=== PATIENT | female | born 1935 | race Caucasian/White ===

== ENCOUNTER 2017-02-05 18:16 | Emergency (ER) | payer BC, MEDICARE ==
[2017-02-05 19:16] VITALS: BP 144/51
--- NOTE | 2017-02-05 20:12 | EDM.PDOC ---
ED HPI GENERAL MEDICAL PROBLEM - General Chief Complaint: Lower Extremity Injury/Pain Stated Complaint: FOOT/ANKLE PAIN, [id number] Time Seen by Provider: 02/05/17 20:07 Source of Information: Reports: Patient History Limitations: Reports: No Limitations - History of Present Illness INITIAL COMMENTS - FREE TEXT/NARRATIVE: states large log fell onto right foot [employer] Left Ankle Pain Score (Numeric/FACES): 7 - Related Data Allergies Allergy/AdvReac Type Severity Reaction Status Date / Time No Known Allergies Allergy Verified 02/05/17 19:09 Home Meds: Home Meds Aspirin [[place] Aspirin] 81 mg PO DAILY 03/07/14 [History] Calcium Carbonate/Vitamin D3 [Calcium 600 + Vit D Tablet] 1 tab PO DAILY [History] Green Tea [place] Extract [Green Tea] 250 mg PO DAILY 03/07/14 [History] Metoprolol Succinate 50 mg PO DAILY 03/07/14 [History] Multivitamin/Iron/Folic Acid [Multi-Day Plus Iron Tablet] 1 tab PO DAILY [History] [place]-3/DHA/Epa/Fish Oil [[place]-3 Fish Oil 1,200 MG Sfgl] 1 tab PO DAILY [History] Selenium 200 mcg PO DAILY 03/07/14 [History] Simvastatin 20 tab PO BEDTIME 03/07/14 [History] Ibuprofen [Motrin] 1 tab PO TIDAC PRN #0 08/29/15 [Rx] Past Medical History HEENT History: Reports: Impaired Vision Other HEENT History: wears glasses Cardiovascular History: Reports: High Cholesterol, Hypertension Gastrointestinal History: Reports: None 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 ED EXAM, GENERAL - Physical Exam Exam: See Below Exam Limited By: No Limitations General Appearance: Alert, WD/WN, No Apparent Distress Ears: Hearing Grossly Normal Throat/Mouth: Normal Voice, No Airway Compromise Head: Atraumatic Neck: Non-Tender, Full Range of Motion Respiratory/Chest: No Respiratory Distress Cardiovascular: Regular Rate, Rhythm GI/Abdominal: Soft, Non-Tender Extremities: Limited Range of Motion, Pallor, Other (right foot contused dorsally, no gross deformity, mild discolouration, NV wnl, gait limited to pain) Neurological: Alert, Normal Cognition, No Motor/Sensory Deficits Psychiatric: Normal Affect, Normal Mood Skin Exam: Warm, Dry Lymphatic: No Adenopathy Course - Vital Signs Last Recorded V/S: Last Vital Signs Temp 36.3 C 02/05/17 19:14 Pulse 68 02/05/17 19:14 Resp 16 02/05/17 19:14 BP 144/51 H 02/05/17 19:14 Pulse Ox 97 02/05/17 19:14 - Re-Assessments/Exams Free Text/Narrative Re-Assessment/Exam: 02/05/17 20:09 results discussed with pt. states the pain is tolerable and doesn't want anything now. Departure - Departure Time of Disposition: 20:10 Disposition: Home, Self-Care 01 Condition: Good Clinical Impression: Fracture of foot - Discharge Information Instructions: How to Use a Cast Shoe Forms: ED Department Discharge Additional Instructions: 1) elevate leg as much as possible 2) wear cast boot and use crutches 3) see family doctor tomorrow for ORTHOPEDIC REFERRAL for foot fracture 4) take tylenol or motrin for pain
== END 2017-02-05 20:39 | disposition home or self-care (01) ==
LOC: DL.ED 18:16
DX: S92.901A Unspecified fracture of right foot, initial encounter for closed fracture (principal); H54.7 Unspecified visual loss; E78.00 Pure hypercholesterolemia, unspecified; I10 Essential (primary) hypertension; M19.90 Unspecified osteoarthritis, unspecified site; Z79.899 Other long term (current) drug therapy; Z79.82 Long term (current) use of aspirin; Z90.49 Acquired absence of other specified parts of digestive tract; W20.8XXA Other cause of strike by thrown, projected or falling object, initial encounter
CPT/HCPCS: 73610-RT; 73620-RT; 99283

== ENCOUNTER 2017-12-27 06:16 | Day surgery (SDC) | payer BC, MEDICARE ==
[~2017-12-27 06:16] MED LIST: Proparacaine 0.5% Ophth Soln 15 ML Bottle ONE
[2017-12-27] MEDS ORDERED: Midazolam 1 MG/ML 2 ML SDV IV ONE (06:17)
[2017-12-27] MEDS ORDERED: Sodium Chloride 0.9% 10 ML Syringe IV ONE (06:17)
[2017-12-27] MEDS ORDERED: Dexamethasone 4 MG/ML SDV IV ONE (06:17)
[2017-12-27] MEDS ORDERED: Sodium Chloride 0.9% 10 ML Syringe FLUSH PRN (06:30)
[2017-12-27] MEDS ORDERED: Moxifloxacin 0.5% Ophth Soln 3 ML Bottle EYELF ONE (06:30)
[2017-12-27] MEDS ORDERED: Povidone-Iodine 5% Sterile Ophth Soln 30 ML Bottle EYELF ONE ×2 (06:30→07:52)
[2017-12-27] MEDS ORDERED: Ondansetron 4 MG/2 ML SDV IVPUSH PRN (06:30)
[2017-12-27] MEDS ORDERED: Timolol Maleate 0.5% Ophth Soln 5 ML Bottle EYELF ONE (06:30)
[2017-12-27] MEDS ORDERED: Phenylephrine 10% Ophth Soln 5 ML Bot EYELF PRN (06:30)
[2017-12-27] MEDS ORDERED: Phenylephrine 10% Ophth Soln 5 ML Bot EYELF ONE (06:30)
[2017-12-27] MEDS ORDERED: Proparacaine 0.5% Ophth Soln 15 ML Bottle EYELF ONE (06:30)
[2017-12-27] MEDS ORDERED: Cataract Ophth Solution EYELF ONE (06:30)
[2017-12-27] MEDS ORDERED: Acetaminophen 325 MG Tab PO PRN (06:30)
[2017-12-27] MEDS ORDERED: Tetracaine HCl/PF 0.5% 4 ML Bottle EYELF ONE (07:51)
[2017-12-27] MEDS ORDERED: Lidocaine 1% 30 ML SDV ONE (07:52)
[2017-12-27] MEDS ORDERED: Balanced Salt Solution Ophth Irrig 500 ML Bottle IOCULAR ONE (07:53)
[2017-12-27] MEDS ORDERED: Apraclonidine 0.5% Ophth Soln 5 ML Bot EYELF ONE (07:53)
[2017-12-27] MEDS ORDERED: Vancomycin 500 MG SDV EYELF ONE (07:53)
[2017-12-27] MEDS ORDERED: Dexamethasone/Neomycin/Polymyxin B Ophth Oint 3.5 GM Tube EYELF ONE (07:53)
[2017-12-27] MEDS ORDERED: Chondroitin Sulfate/Hyaluronate Sodium Ophth Inj 0.75 ML Syringe EYELF ONE (07:54)
--- NOTE | 2017-12-27 08:43 | OR ---
DATE: 12/27/2017 PREOPERATIVE DIAGNOSIS: Visually significant mixed cataract, left eye. POSTOPERATIVE DIAGNOSIS: Visually significant mixed cataract, left eye. PROCEDURE: Extracapsular cataract extraction with intraocular lens implant, left eye. ANESTHESIA: Topical/local MAC. COMPLICATIONS: None. INDICATION: Mrs. Castro was seen in the clinic with complaints of blurred vision. Clinical examination revealed visually significant cataract. I explained options, offered cataract surgery; and I explained the risks including the potential for infection, retinal detachment, loss of vision, and need for additional surgery amongst others. She has preexisting pseudoexfoliation, and I also explained the potential for lens dislocation. She is symptomatic, voiced an understanding with respect to risks, and wished to proceed. She requested a monofocal implant. OPERATIVE DESCRIPTION: After informed consent was obtained and the risks, benefits, and alternatives were explained, the patient was brought to the operative suite and topical anesthesia was administered. The patient was then prepped and draped in the sterile fashion, and attention was placed on the left eye. A sterile lid speculum was placed into the left eye to allow operative exposure. A full-thickness paracentesis was made in the temporal portion of the operative eye. Preservative-free lidocaine 0.1 mL was injected into the anterior chamber followed by viscoelastic. A full-thickness corneal incision was then made into the anterior chamber. A bent needle cystotome was used to create a small david in the anterior capsule. The capsulorrhexis forceps was then used to create a 360-degree curvilinear capsulorrhexis. The nucleus was then removed using a phacoemulsification handpiece, and the remaining cortical material was then removed with irrigation and aspiration handpiece. Following removal of the cortical material, the capsular bag was then inspected and noted to be free of any holes or tears. Viscoelastic was then injected into the capsular bag, and the intraocular lens was inserted into the capsular bag. The viscoelastic material was then removed from both the anterior and posterior chambers and from behind the IOL. The lens and capsular bag were then reinspected. The IOL was well centered and the capsular bag intact. The wound and paracentesis sites were inspected and hydrated with balanced saline solution. Both were found to be self-sealing. The intraocular pressure was assessed digitally and found to be within normal range. A good red reflex was noted at the completion of the procedure. No complications occurred during the operation. At the completion of the procedure, Huber, Voltaren, and Iopidine drops were placed into the operative eye. A sterile eye shield was placed over the operative eye, and the patient was transported to the postoperative recovery area having tolerated the procedure well. Postoperative instructions were given along with a postoperative appointment. The patient was advised to call with any questions or concerns. [facility] /[id number]
[2017-12-27 10:28] VITALS: BP 133/49
== END 2017-12-27 09:06 | disposition home or self-care (01) ==
LOC: DL.SDS 06:16
PROVIDERS: ATTEND Ophthalmology
DX: H26.8 Other specified cataract (principal); E11.9 Type 2 diabetes mellitus without complications; E78.5 Hyperlipidemia, unspecified; I10 Essential (primary) hypertension; M81.0 Age-related osteoporosis without current pathological fracture; H81.20 Vestibular neuronitis, unspecified ear; Z98.890 Other specified postprocedural states; Z86.010 Personal history of colon polyps; Z90.49 Acquired absence of other specified parts of digestive tract; Z87.891 Personal history of nicotine dependence; Z79.899 Other long term (current) drug therapy; Z79.82 Long term (current) use of aspirin
CPT/HCPCS: 66984; A9270; J1100; J2250; J3370; J7050; V2632

== ENCOUNTER 2018-01-03 06:16 | Day surgery (SDC) | payer BC, MEDICARE ==
[2018-01-03] MEDS ORDERED: Sodium Chloride 0.9% 10 ML Syringe IV ONE (06:17)
[2018-01-03] MEDS ORDERED: Midazolam 1 MG/ML 2 ML SDV IV ONE (06:17)
[2018-01-03] MEDS ORDERED: Dexamethasone 4 MG/ML SDV IV ONE (06:17)
[2018-01-03] MEDS ORDERED: Proparacaine 0.5% Ophth Soln 15 ML Bottle ONE (06:21)
[2018-01-03] MEDS ORDERED: Phenylephrine 10% Ophth Soln 5 ML Bot EYERT ONE (06:30)
[2018-01-03] MEDS ORDERED: Ondansetron 4 MG/2 ML SDV IVPUSH PRN (06:30)
[2018-01-03] MEDS ORDERED: Povidone-Iodine 5% Sterile Ophth Soln 30 ML Bottle EYERT ONE ×2 (06:30→08:31)
[2018-01-03] MEDS ORDERED: Acetaminophen/Codeine 300-30 MG Tab PO PRN (06:30)
[2018-01-03] MEDS ORDERED: Dilation Soln 1 EA EACH EYERT ONE (06:30)
[2018-01-03] MEDS ORDERED: Proparacaine 0.5% Ophth Soln 15 ML Bottle EYERT ONE (06:30)
[2018-01-03] MEDS ORDERED: Sodium Chloride 0.9% 10 ML Syringe FLUSH PRN (06:30)
[2018-01-03] MEDS ORDERED: Moxifloxacin 0.5% Ophth Soln 3 ML Bottle EYERT ONE (06:30)
[2018-01-03] MEDS ORDERED: Timolol Maleate 0.5% Ophth Soln 5 ML Bottle EYERT ONE (06:30)
[2018-01-03] MEDS ORDERED: Acetaminophen 325 MG Tab PO PRN (06:30)
[2018-01-03] MEDS ORDERED: Tetracaine HCl/PF 0.5% 4 ML Bottle EYERT ONE (08:30)
[2018-01-03] MEDS ORDERED: Lidocaine 1% 30 ML SDV INJECT ONE (08:36)
[2018-01-03] MEDS ORDERED: Vancomycin 500 MG SDV EYERT ONE (08:40)
[2018-01-03] MEDS ORDERED: Balanced Salt Solution Ophth Irrig 500 ML Bottle IOCULAR ONE (08:41)
[2018-01-03] MEDS ORDERED: Chondroitin Sulfate/Hyaluronate Sodium Ophth Inj 0.75 ML Syringe EYERT ONE (08:42)
[2018-01-03] MEDS ORDERED: Dexamethasone/Neomycin/Polymyxin B Ophth Oint 3.5 GM Tube EYERT ONE (08:48)
[2018-01-03] MEDS ORDERED: Apraclonidine 0.5% Ophth Soln 5 ML Bot EYERT ONE (08:48)
--- NOTE | 2018-01-03 09:09 | OR ---
DATE: 01/03/2018 PREOPERATIVE DIAGNOSIS: Visually significant mixed cataract, right eye. POSTOPERATIVE DIAGNOSIS: Visually significant mixed cataract, right eye. PROCEDURE: Extracapsular cataract extraction with intraocular lens implant, right eye. ANESTHESIA: Topical/local MAC. COMPLICATIONS: None. INDICATION: Mrs. Castro was seen in the clinic. Clinical examination reveals 3+ nuclear and cortical cataract. She is symptomatic with complaints of blurred vision. I explained options, offered cataract surgery, and I explained risks preoperatively including the potential for vision loss. She is symptomatic and requested surgery. She requested a monofocal implant. OPERATIVE DESCRIPTION: After informed consent was obtained and the risks, benefits, and alternatives were explained, the patient was brought to the operative suite and topical anesthesia was administered. The patient was then prepped and draped in the sterile fashion, and attention was placed on the right eye. A sterile lid speculum was placed into the right eye to allow operative exposure. A full-thickness paracentesis was made in the temporal portion of the operative eye. Preservative-free lidocaine 0.1 mL was injected into the anterior chamber followed by viscoelastic. A full-thickness corneal incision was then made into the anterior chamber. A bent needle cystotome was used to create a small david in the anterior capsule. The capsulorrhexis forceps was then used to create a 360-degree curvilinear capsulorrhexis. The nucleus was then removed using a phacoemulsification handpiece and the remaining cortical material was then removed with irrigation and aspiration handpiece. Following removal of the cortical material, the capsular bag was then inspected and noted to be free of any holes or tears. Viscoelastic was then injected into the capsular bag, and the intraocular lens was inserted into the capsular bag. The viscoelastic material was then removed from both the anterior and posterior chambers and from behind the IOL. The lens and capsular bag were then reinspected. The IOL was well centered and the capsular bag intact. The wound and paracentesis sites were inspected and hydrated with balanced saline solution. Both were found to be self-sealing. The intraocular pressure was assessed digitally and found to be within normal range. A good red reflex was noted at the completion of the procedure. No complications occurred during the operation. At the completion of the procedure, Maxitrol, Voltaren, and Iopidine drops were placed into the operative eye. A sterile eye shield was placed over the operative eye, and the patient was transported to the postoperative recovery area having tolerated the procedure well. Postoperative instructions were given along with a postoperative appointment. The patient was advised to call with any questions or concerns. [facility] /[id number]
[2018-01-03 09:38] VITALS: BP 141/50
== END 2018-01-03 09:46 | disposition home or self-care (01) ==
LOC: DL.SDS 06:16
PROVIDERS: ATTEND Ophthalmology
DX: H25.811 Combined forms of age-related cataract, right eye (principal); I10 Essential (primary) hypertension; E11.9 Type 2 diabetes mellitus without complications; E78.5 Hyperlipidemia, unspecified; Z87.891 Personal history of nicotine dependence; Z79.82 Long term (current) use of aspirin; Z79.899 Other long term (current) drug therapy
CPT/HCPCS: 66984; A9270; J1100; J2250; J3370; J7050; V2632

== ENCOUNTER 2021-05-22 20:00 | Emergency (ER) | payer BC, MEDICARE ==
[2021-05-23 00:15] VITALS: BP 149/68; PULSE 57
[2021-05-23] MEDS ORDERED: Ondansetron 4 MG Tab.DIS PO ONE (00:20)
--- NOTE | 2021-05-23 01:55 | EDM.PDOC ---
ED HPI GENERAL MEDICAL PROBLEM - General Chief Complaint: Respiratory Problem Stated Complaint: POSITIVE AT HOME COVID TEST Time Seen by Provider: 05/23/21 01:40 Source of Information: Reports: Patient - History of Present Illness INITIAL COMMENTS - FREE TEXT/NARRATIVE: Pt is here because she tested positive for COVID. She has been having abdominal and back pain for the last 4 days. She denies any fevers or chills. She does have a little cough, but no shortness of breath or chest pain. She has some nausea, but no vomiting. No diarrhea or constipation. She feels like her symptoms have been getting better, but her family had her test for COVID and she tested positive at home. She is here now for the "COVID drip" because she tested positive. Lower Back Pain Score (Numeric/FACES): 8 - Related Data Allergies Allergy/AdvReac Type Severity Reaction Status Date / Time No Known Allergies Allergy Verified 01/03/18 06:56 Home Meds: Home Meds Aspirin [[place] Aspirin] 81 mg PO DAILY 03/07/14 [History] Calcium Carbonate/Vitamin D3 [Calcium 600 + Vit D Tablet] 1 tab PO DAILY 03/07/14 [History] Green Tea [place] Extract [Green Tea] 250 mg PO DAILY 03/07/14 [History] Metoprolol Succinate 50 mg PO DAILY 03/07/14 [History] Multivitamin/Iron/Folic Acid [Multi-Day Plus Iron Tablet] 1 tab PO DAILY 03/07/14 [History] Simvastatin 20 tab PO BEDTIME 03/07/14 [History] Ibuprofen [Advil] 200 mg PO DAILY 01/02/18 [History] Lactulose [Constulose] 15 ml PO BID 01/02/18 [History] Past Medical History HEENT History: Reports: Cataract, Impaired Vision, Other (See Below) Other HEENT History: wears glasses. 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: , Spontaneous Musculoskeletal History: Reports: Arthritis, Osteoporosis Neurological History: Reports: Headaches, Chronic, Other (See Below) Other Neuro History: VESTIBULAR NEURONITIS Psychiatric History: Reports: None Endocrine/Metabolic History: Reports: Diabetes, Type II Hematologic History: Reports: None Immunologic History: Reports: None Oncologic (Cancer) History: Reports: None Dermatologic History: Reports: None - Infectious Disease History Infectious Disease History: Reports: None Other Infectious Disease History: unknown - Past Surgical History Head Surgeries/Procedures: Reports: None HEENT Surgical History: Reports: Cataract Surgery Other HEENT Surgeries/Procedures: cataract extraction with intraocular lens replacement to the left eye Cardiovascular Surgical History: Reports: None Respiratory Surgical History: Reports: None GI Surgical History: Reports: Appendectomy, Cholecystectomy, Colonoscopy, Polypectomy Female Surgical History: Reports: None Musculoskeletal Surgical History: Reports: None Social & Family History - Family History Cardiac: Reports: CAD Oncologic: Reports: Breast, Lung, Other (See Below) Other Oncologic Family History: SPLEEN - Tobacco Use Tobacco Use Status *Q: Never Tobacco User Second Hand Smoke Exposure: No - Caffeine Use Caffeine Use: Reports: Coffee Other Caffeine Use: 8 cups daily ED ROS GENERAL - Review of Systems Review Of Systems: Comprehensive ROS is negative, except as noted in HPI. ED EXAM, GENERAL - Physical Exam Exam: See Below Exam Limited By: No Limitations General Appearance: Alert, WD/WN, No Apparent Distress Eye Exam: Bilateral Eye: Normal Inspection Ears: Normal External Exam Throat/Mouth: Normal Voice, No Airway Compromise Head: Atraumatic, Normocephalic Neck: Normal Inspection, Supple Respiratory/Chest: No Respiratory Distress, Lungs Clear, Normal Breath Sounds, No Accessory Muscle Use, Chest Non-Tender Cardiovascular: Normal Peripheral Pulses, Regular Rate, Rhythm, No Edema, No Murmur GI/Abdominal: Normal Bowel Sounds, Soft, Non-Tender, No Distention. No: Guarding, Rebound (Female) Exam: Deferred Rectal (Female) Exam: Deferred Back Exam: Normal Inspection, Full Range of Motion Extremities: Normal Range of Motion, Normal Capillary Refill Neurological: Alert, Oriented, Normal Cognition, No Motor/Sensory Deficits Psychiatric: Normal Affect, Normal Mood Skin Exam: Warm, Dry, Intact, Normal Color Lymphatic: No Adenopathy Course - Vital Signs Last Recorded V/S: Last Vital Signs Temp 97.5 F 05/23/21 00:11 Pulse 57 L 05/23/21 00:11 Resp 18 05/23/21 00:11 BP 149/68 H 05/23/21 00:11 Pulse Ox 96 05/23/21 00:11 - Orders/Labs/Meds Labs: Laboratory Tests 05/23/21 05/23/21 05/23/21 Range/Units 01:54 01:54 01:54 WBC 4.1 L (5.0-10.0) 10^3/uL RBC 4.39 (4.2-5.4) 10^6/uL Hgb 13.8 (12.0-16.0) g/dL Hct 40.6 (37.0-47.0) % MCV 92.5 (80-100) fL MCH 31.4 (27.0-34.0) pg MCHC 34.0 (33.0-35.0) g/dL Plt Count 212 (150-450) 10^3/uL Neut % (Auto) 38.4 L (42.2-75.2) % Lymph % (Auto) 47.1 (20.5-50.1) % [place] % (Auto) 14.5 H (2-8) % Eos % (Auto) 0.0 L (1.0-3.0) % Baso % (Auto) 0.0 (0.0-1.0) % D-Dimer, Quantitative < 100 (0-400) ng/mL Sodium 137 (136-145) mmol/L Potassium 4.9 (3.5-5.1) mmol/L Chloride 100 (98-107) mmol/L Carbon Dioxide 30 (21-32) mmol/L Anion Gap 11.9 (7-13) mEq/L BUN 16 (7-18) mg/dL Creatinine 0.79 (0.55-1.02) mg/dL Est Cr Clr Drug Dosing 45.17 mL/min Estimated GFR (MDRD) > 60 BUN/Creatinine Ratio 20.3 (No establ ref range) Glucose 123 H (70-99) mg/dL Lactic Acid (0.4-2.0) mmol/L Calcium 8.8 (8.5-10.1) mg/dL Total Bilirubin 0.4 (0.2-1.0) mg/dL AST 28 (15-37) U/L ALT 26 (14-59) U/L Alkaline Phosphatase 63 (46-116) U/L Total Protein 6.9 (6.4-8.2) g/dL Albumin 3.6 (3.4-5.0) g/dL Globulin 3.3 Albumin/Globulin Ratio 1.1 10/10/21 Range/Units 01:54 WBC (5.0-10.0) 10^3/uL RBC (4.2-5.4) 10^6/uL Hgb (12.0-16.0) g/dL Hct (37.0-47.0) % MCV (80-100) fL MCH (27.0-34.0) pg MCHC (33.0-35.0) g/dL Plt Count (150-450) 10^3/uL Neut % (Auto) (42.2-75.2) % Lymph % (Auto) (20.5-50.1) % [place] % (Auto) (2-8) % Eos % (Auto) (1.0-3.0) % Baso % (Auto) (0.0-1.0) % D-Dimer, Quantitative (0-400) ng/mL Sodium (136-145) mmol/L Potassium (3.5-5.1) mmol/L Chloride (98-107) mmol/L Carbon Dioxide (21-32) mmol/L Anion Gap (7-13) mEq/L BUN (7-18) mg/dL Creatinine (0.55-1.02) mg/dL Est Cr Clr Drug Dosing mL/min Estimated GFR (MDRD) BUN/Creatinine Ratio (No establ ref range) Glucose (70-99) mg/dL Lactic Acid 0.7 (0.4-2.0) mmol/L Calcium (8.5-10.1) mg/dL Total Bilirubin (0.2-1.0) mg/dL AST (15-37) U/L ALT (14-59) U/L Alkaline Phosphatase (46-116) U/L Total Protein (6.4-8.2) g/dL Albumin (3.4-5.0) g/dL Globulin Albumin/Globulin Ratio Meds: Medications Discontinued Medications Generic Name Dose Route Start Last Admin Trade Name Freq PRN Reason Stop Dose Admin Ondansetron HCl 4 mg 05/23/21 00:20 05/23/21 00:23 Ondansetron 4 Mg Tab.Dis PO 05/23/21 00:21 4 mg ONETIME ONE Administration - Re-Assessments/Exams Free Text/Narrative Re-Assessment/Exam: Discussed lab results with the pt. Discussed with pt that, given our current shortage of COVID medications, she is just too healthy to qualify for treatment at this time, especially since she noted she was feeling better than when her symptoms started. Pt verbalized she was glad to hear she was doing well and did not need the infusion. Offered zofran Rx for home for her nausea, pt declines at this time. She verbalizes she is ready to go home. 05/23/21 02:54 Departure - Departure Time of Disposition: 03:00 Disposition: Home, Self-Care 01 Condition: Fair Clinical Impression: COVID-19 - Discharge Information *PRESCRIPTION DRUG MONITORING PROGRAM REVIEWED*: Not Applicable *COPY OF PRESCRIPTION DRUG MONITORING REPORT IN PATIENT YARI: Not Applicable Instructions: COVID-19 Frequently Asked Questions, COVID-19, COVID-19: Quarantine vs. Isolation - [facility] [place] (07/30/2020), COVID-19: What to Do If You Are Sick- [facility] [place] (10/28/2020) Forms: ED Department Discharge Additional Instructions: If your symptoms worsen, call/return to the ER Follow up with your primary care provider in 7-10 days. Sepsis Event Note (ED) - Focused Exam Vital Signs: Vital Signs Temp Pulse Resp BP Pulse Ox 05/23/21 00:11 97.5 F 57 L 18 149/68 H 96
[2021-05-23 02:21] LABS: ANION GAP 11.9 mEq/L (7-13); CHLORIDE,CL 100 mmol/L (98-107); SODIUM,NA 137 mmol/L (136-145)
== END 2021-05-23 03:32 | disposition home or self-care (01) ==
LOC: DL.ED 20:00
DX: U07.1 COVID-19 (principal); E78.00 Pure hypercholesterolemia, unspecified; I10 Essential (primary) hypertension; E11.9 Type 2 diabetes mellitus without complications; Z79.82 Long term (current) use of aspirin; Z79.899 Other long term (current) drug therapy; M19.90 Unspecified osteoarthritis, unspecified site
CPT/HCPCS: 36415; 80053; 83605; 85025; 85379; 99284; A9270

== ENCOUNTER 2022-06-03 13:25 | Emergency (ER) | payer MEDICARE, BC ==
[2022-06-03 13:29] VITALS: BP 173/58; PULSE 64
[2022-06-03] MEDS: Ondansetron 4 MG Tab.DIS PO ONE (13:50)
[2022-06-03] MEDS: Meclizine 12.5 MG Tab PO ONE (13:51)
[2022-06-03 14:13] LABS: AMPHETAMINES,URINE NEGATIVE (NEGATIVE); BARBITURATES,URINE NEGATIVE (NEGATIVE); BENZODIAZEPINE,URINE NEGATIVE (NEGATIVE); MDMA (ECSTASY), URINE NEGATIVE (NEGATIVE); METHADONE,URINE NEGATIVE (NEGATIVE); METHAMPHETAMINES,URINE NEGATIVE (NEGATIVE); OPIATES,URINE NEGATIVE (NEGATIVE); OXYCODONE,URINE NEGATIVE (NEGATIVE); PHENCYCLIDINE,URINE NEGATIVE (NEGATIVE); TCA,URINE NEGATIVE (NEGATIVE)
[2022-06-03 14:31] LABS: ANION GAP 12.3 mEq/L (7-13); CHLORIDE,CL 102 mmol/L (98-107); SODIUM,NA 139 mmol/L (136-145)
[2022-06-03 14:33] LABS: ESTIMATED GFR 72 mL/min (>=60)
== END 2022-06-03 15:50 | disposition home or self-care (01) ==
LOC: DL.ED 13:25
DX: R42 Dizziness and giddiness (principal); N30.01 Acute cystitis with hematuria; I10 Essential (primary) hypertension; E11.9 Type 2 diabetes mellitus without complications; Z79.899 Other long term (current) drug therapy; Z20.822 Contact with and (suspected) exposure to COVID-19
CPT/HCPCS: 36415; 71045; 80053; 80305; 80307; 81001; 82140; 83605; 83735; 84443; 84484; 85025; 86140; 87086; 87088; 87186; 93005; 99284; A9270; U0002; 93010

== ENCOUNTER 2023-06-07 17:32 | Emergency (ER) | payer MEDICARE, BC ==
[2023-06-07] MEDS ORDERED: Sodium Chloride 0.9% 10 ML Syringe FLUSH PRN (17:36)
[2023-06-07] MEDS ORDERED: Ondansetron 4 MG/2 ML SDV IVPUSH ONE (17:37)
[2023-06-07 17:43] VITALS: BP 157/69; PULSE 64
[2023-06-07] MEDS ORDERED: Ketorolac 30 MG/ML SDV IVPUSH ONE (17:43)
[2023-06-07] MEDS ORDERED: Lactated Ringers 1,000 ML IV ONE (17:44)
[2023-06-07] MEDS ORDERED: Dexamethasone 4 MG/ML SDV IVPUSH ONE (17:54)
[2023-06-07 18:08] LABS: BASOPHILS PERCENT AUTO 0.1 % (0.0-1.0); HEMATOCRIT 40.3 % (37.0-47.0); HEMOGLOBIN 14.1 g/dL (12.0-16.0); LYMPHOCYTES PERCENT AUTO 10.3 % (20.5-50.1); MEAN CORPUSCULAR HEMOGLOBIN 31.8 pg (27.0-34.0); MEAN CORPUSCULAR VOLUME 90.8 fL (80-100); MONOCYTES PERCENT AUTO 3.7 % (2-8); NEUTROPHILS PERCENT AUTO 85.9 % (42.2-75.2); PLATELET COUNT,PLT 345 10^3/uL (150-450); RED BLOOD CELL COUNT 4.44 10^6/uL (4.2-5.4)
[2023-06-07 18:09] LABS: ANION GAP 12.3 mEq/L (7-13); BILIRUBIN TOTAL 0.6 mg/dL (0.2-1.0); BUN/CREATININE RATIO 19.2 (No establ ref range); CALCIUM 8.9 mg/dL (8.5-10.1); CREATININE 0.99 mg/dL (0.55-1.02); EST CRCL DRUG DOSING (CG) 34.47 mL/min; POTASSIUM,K 4.3 mmol/L (3.5-5.1); PROTEIN TOTAL,TP 8.1 g/dL (6.4-8.2)
== END 2023-06-07 18:52 | disposition home or self-care (01) ==
LOC: DL.ED 17:32
DX: U07.1 COVID-19 (principal); R52 Pain, unspecified; I10 Essential (primary) hypertension; E11.9 Type 2 diabetes mellitus without complications; Z79.82 Long term (current) use of aspirin; Z79.899 Other long term (current) drug therapy; Z86.16 Personal history of COVID-19; Z90.49 Acquired absence of other specified parts of digestive tract; Z87.891 Personal history of nicotine dependence
CPT/HCPCS: 36415; 80053; 84484; 85025; 96361; 96374; 96375; 99283; J1100; J1885; J2405; J7120; J3490

== ENCOUNTER 2023-06-11 12:25 | Emergency (ER) | payer MEDICARE, BC ==
[2023-06-11 13:31] VITALS: PULSE 62
[2023-06-11 13:41] VITALS: BP 154/71
[2023-06-11] MEDS ORDERED: Ketorolac 30 MG/ML SDV IM ONE (13:42)
[2023-06-11] MEDS ORDERED: Acetaminophen 500 MG Tab PO ONE (13:42)
[2023-06-11 13:55] LABS: APPEARANCE,URINE CLEAR (CLEAR); BILIRUBIN,URINE NEGATIVE (NEGATIVE); COLOR,URINE YELLOW (YELLOW); GLUCOSE,URINE NEGATIVE (NEGATIVE); KETONES,URINE NEGATIVE (NEGATIVE); LEUKOCYTE ESTERASE,URINE TRACE (NEGATIVE); NITRITE,URINE NEGATIVE (NEGATIVE); OCCULT BLOOD,URINE TRACE-INTACT (NEGATIVE); PROTEIN,URINE NEGATIVE (NEGATIVE); UROBILINOGEN,URINE 0.2 mg/dL (0.2-1.0)
[2023-06-11 14:07] LABS: EPITHELIAL CELLS,URINE FEW /HPF (NOT SEEN); RBC,URINE 0-5 /HPF (0-5); WBC,URINE 0-5 /HPF (0-5/HPF)
[2023-06-11 14:08] LABS: BACTERIA,URINE FEW /HPF (0-FEW/HPF)
== END 2023-06-11 15:12 | disposition home or self-care (01) ==
LOC: DL.ED 12:25
DX: U07.1 COVID-19 (principal); I10 Essential (primary) hypertension; E11.9 Type 2 diabetes mellitus without complications; Z86.16 Personal history of COVID-19; Z79.82 Long term (current) use of aspirin; Z79.899 Other long term (current) drug therapy
CPT/HCPCS: 81001; 87086; 96372; 99283; 99284; A9270-GY; J1885

== ENCOUNTER 2024-11-20 08:57 | Inpatient (IN) | payer MEDICARE, BC ==
[2024-11-20 09:26] LABS: BASOPHILS PERCENT AUTO 0.2 % (0.0-1.0); EOSINOPHILS PERCENT AUTO 0.7 % (1.0-3.0); HEMATOCRIT 40.6 % (37.0-47.0); HEMOGLOBIN 13.5 g/dL (12.0-16.0); LYMPHOCYTES PERCENT AUTO 30.1 % (20.5-50.1); MEAN CORPUSCULAR HEMOGLOBIN 30.8 pg (27.0-34.0); MEAN CORPUSCULAR HGB CONC 33.3 g/dL (33.0-35.0); MEAN CORPUSCULAR VOLUME 92.5 fL (80-100); MONOCYTES PERCENT AUTO 6.7 % (2-8); NEUTROPHILS PERCENT AUTO 62.3 % (42.2-75.2); PLATELET COUNT,PLT 373 10^3/uL (150-450); RED BLOOD CELL COUNT 4.39 10^6/uL (4.2-5.4); WHITE BLOOD CELL COUNT,WBC 8.8 10^3/uL (5.0-10.0)
[2024-11-20 09:50] LABS: LACTIC ACID 2.5 mmol/L (0.4-2.0)
[2024-11-20 09:52] LABS: A/G RATIO 1.1; ALANINE AMINOTRANSFERASE,ALT 139 U/L (14-59); ALBUMIN 3.6 g/dL (3.4-5.0); ALKALINE PHOSPHATASE 97 U/L (46-116); ANION GAP 14.4 mEq/L (7-13); ASPARTATE AMNIOTRANSFERASE,AST 219 U/L (15-37); BILIRUBIN TOTAL 0.5 mg/dL (0.2-1.0); BLOOD UREA NITROGEN,BUN 13 mg/dL (7-18); BUN/CREATININE RATIO 15.1 (No establ ref range); CALCIUM 9.6 mg/dL (8.5-10.1); CARBON DIOXIDE,CO2 30 mmol/L (21-32); CHLORIDE,CL 102 mmol/L (98-107); CREATININE 0.86 mg/dL (0.55-1.02); EST CRCL DRUG DOSING (CG) 41.47 mL/min; GLUCOSE RANDOM 195 mg/dL (70-99); POTASSIUM,K 4.4 mmol/L (3.5-5.1); PROTEIN TOTAL,TP 6.9 g/dL (6.4-8.2); PROTHROMBIN TIME 10.1 SEC (9.0-12.0); PTT,PARTIAL THROMBOPLSTIN TIME 22.6 SEC (22.0-34.0); SODIUM,NA 142 mmol/L (136-145)
[2024-11-20 10:01] LABS: C-REACTIVE PROTEIN < 0.50 ng/dL (<=0.50); ESTIMATED GFR 65 mL/min (>=60)
[2024-11-20] MEDS: Sodium Chloride 0.9% 1,000 ML IV ONE (10:01)
[2024-11-20 10:02] LABS: LIPASE > 250 U/L (16-77)
[2024-11-20] MEDS: Iopamidol 612 MG/ML 100 ML Bottle IVPUSH ONE (11:42)
[2024-11-20 12:12] LABS: APPEARANCE,URINE CLEAR (CLEAR); BILIRUBIN,URINE NEGATIVE (NEGATIVE); COLOR,URINE YELLOW (YELLOW); GLUCOSE,URINE 100 (NEGATIVE); KETONES,URINE NEGATIVE (NEGATIVE); LEUKOCYTE ESTERASE,URINE NEGATIVE (NEGATIVE); NITRITE,URINE NEGATIVE (NEGATIVE); OCCULT BLOOD,URINE NEGATIVE (NEGATIVE); PH,URINE 7.5 (5.0-9.0); PROTEIN,URINE NEGATIVE (NEGATIVE); UROBILINOGEN,URINE 0.2 mg/dL (0.2-1.0)
[2024-11-20] MEDS ORDERED: Glucagon,Human Recombinant 1 MG Vial IM PRN (12:33)
[2024-11-20] MEDS ORDERED: 50% Dextrose in Water 50 ML Syringe IVPUSH PRN (12:33)
[2024-11-20 13:01] LABS: CHOLESTEROL HDL 100 mg/dL (40-59); CHOLESTEROL LDL CALCULATED 64 mg/dL (0-100); CHOLESTEROL TOTAL 177 mg/dL (0-199); HEMOGLOBIN A1C 6.7 % (<5.7); TRIGLYCERIDES 65 mg/dL (0-149)
[2024-11-20] MEDS: D5 1/2 NS w/ 20 mEq/L KCl 1,000 ML IV SCH (13:45)
[2024-11-20] MEDS: Insulin Lispro 100 Units/ML 3 ML Vial SUBCUT SCH (13:46)
[2024-11-20] MEDS: Heparin Sodium 5,000 Units/ML Vial SUBCUT SCH (13:46)
[2024-11-20] MEDS: Morphine 2 MG/ML SYRINGE IVPUSH PRN (16:10)
[2024-11-20] MEDS: Ondansetron 4 MG/2 ML SDV IVPUSH PRN (16:17)
[2024-11-20] MEDS: fentaNYL 100 MCG/2 ML SDV IVPUSH ONE ×2 (19:29→20:43)
[2024-11-21 06:20] LABS: BASOPHILS PERCENT AUTO 0.1 % (0.0-1.0); EOSINOPHILS PERCENT AUTO 0.1 % (1.0-3.0); HEMATOCRIT 36.5 % (37.0-47.0); HEMOGLOBIN 12.1 g/dL (12.0-16.0); LYMPHOCYTES PERCENT AUTO 25.1 % (20.5-50.1); MEAN CORPUSCULAR HEMOGLOBIN 30.6 pg (27.0-34.0); MEAN CORPUSCULAR HGB CONC 33.2 g/dL (33.0-35.0); MEAN CORPUSCULAR VOLUME 92.2 fL (80-100); MONOCYTES PERCENT AUTO 6.5 % (2-8); NEUTROPHILS PERCENT AUTO 68.2 % (42.2-75.2); PLATELET COUNT,PLT 343 10^3/uL (150-450); RED BLOOD CELL COUNT 3.96 10^6/uL (4.2-5.4); WHITE BLOOD CELL COUNT,WBC 9.5 10^3/uL (5.0-10.0)
[2024-11-21 06:50] LABS: ALBUMIN 3.3 g/dL (3.4-5.0); ALKALINE PHOSPHATASE 203 U/L (46-116); BILIRUBIN DIRECT 0.2 mg/dL (0.0-0.2); BILIRUBIN INDIRECT 0.3; BILIRUBIN TOTAL 0.5 mg/dL (0.2-1.0); MAGNESIUM 1.6 mg/dL (1.8-2.4); PROTEIN TOTAL,TP 6.4 g/dL (6.4-8.2)
[2024-11-21 07:37] LABS: A/G RATIO 1.06; ALANINE AMINOTRANSFERASE,ALT > 1000 U/L (14-59); ASPARTATE AMNIOTRANSFERASE,AST > 1000 U/L (15-37)
[2024-11-21] MEDS: Magnesium Sulf/Wat 2 GM/50 mL 2 GM in Premix Bag 1 BAG IV ONE (09:01)
[2024-11-21 09:28] LABS: PERCENT FE SATURATION 47.2 % (20.0-50.0)
[2024-11-21] MEDS: predniSONE 20 MG Tab PO ONE (09:31)
[2024-11-21] MEDS ORDERED: D5 1/2 NS w/ 20 mEq/L KCl 1,000 ML IV SCH (11:45)
[2024-11-21] MEDS: D5 1/2 NS w/ 10 mEq/L KCl 1,000 ML IV SCH (14:02)
[2024-11-21] MEDS ORDERED: 50% Dextrose in Water 50 ML Syringe IVPUSH PRN (16:41)
[2024-11-21] MEDS ORDERED: Glucagon,Human Recombinant 1 MG Vial IM PRN (16:41)
[2024-11-21] MEDS: Insulin Regular, Human 100 Units/ML 10 ML Vial IV ONE (17:09)
[2024-11-21] MEDS: Insulin Lispro 100 Units/ML 3 ML Vial SUBCUT SCH (18:08)
[2024-11-22] MEDS: Insulin Lispro 100 Units/ML 3 ML Vial SUBCUT SCH (00:21)
[2024-11-22 06:17] LABS: BASOPHILS PERCENT AUTO 0.1 % (0.0-1.0); EOSINOPHILS PERCENT AUTO 0.3 % (1.0-3.0); HEMATOCRIT 36.7 % (37.0-47.0); HEMOGLOBIN 12.3 g/dL (12.0-16.0); LYMPHOCYTES PERCENT AUTO 23.4 % (20.5-50.1); MEAN CORPUSCULAR HEMOGLOBIN 31.3 pg (27.0-34.0); MEAN CORPUSCULAR HGB CONC 33.5 g/dL (33.0-35.0); MEAN CORPUSCULAR VOLUME 93.4 fL (80-100); MONOCYTES PERCENT AUTO 7.9 % (2-8); NEUTROPHILS PERCENT AUTO 68.3 % (42.2-75.2); PLATELET COUNT,PLT 329 10^3/uL (150-450); RED BLOOD CELL COUNT 3.93 10^6/uL (4.2-5.4); WHITE BLOOD CELL COUNT,WBC 10.4 10^3/uL (5.0-10.0)
[2024-11-22 06:45] LABS: ALBUMIN 3.2 g/dL (3.4-5.0); ANION GAP 15.1 mEq/L (7-13); BILIRUBIN DIRECT 0.2 mg/dL (0.0-0.2); BILIRUBIN INDIRECT 0.3; BILIRUBIN TOTAL 0.5 mg/dL (0.2-1.0); CALCIUM 8.6 mg/dL (8.5-10.1); CREATININE 0.76 mg/dL (0.55-1.02); EST CRCL DRUG DOSING (CG) 45.67 mL/min; POTASSIUM,K 4.1 mmol/L (3.5-5.1); PROTEIN TOTAL,TP 6.4 g/dL (6.4-8.2)
[2024-11-22] MEDS: predniSONE 20 MG Tab PO ONE (09:29)
[2024-11-23 06:01] LABS: BASOPHILS PERCENT AUTO 0.2 % (0.0-1.0); EOSINOPHILS PERCENT AUTO 0.5 % (1.0-3.0); HEMATOCRIT 36.5 % (37.0-47.0); HEMOGLOBIN 12.1 g/dL (12.0-16.0); LYMPHOCYTES PERCENT AUTO 25.1 % (20.5-50.1); MEAN CORPUSCULAR HEMOGLOBIN 30.9 pg (27.0-34.0); MEAN CORPUSCULAR HGB CONC 33.2 g/dL (33.0-35.0); MEAN CORPUSCULAR VOLUME 93.1 fL (80-100); MONOCYTES PERCENT AUTO 8.5 % (2-8); NEUTROPHILS PERCENT AUTO 65.7 % (42.2-75.2); PLATELET COUNT,PLT 340 10^3/uL (150-450); RED BLOOD CELL COUNT 3.92 10^6/uL (4.2-5.4); WHITE BLOOD CELL COUNT,WBC 10.1 10^3/uL (5.0-10.0)
[2024-11-23 06:28] LABS: ALBUMIN 3.1 g/dL (3.4-5.0); ANION GAP 15.9 mEq/L (7-13); BILIRUBIN DIRECT 0.2 mg/dL (0.0-0.2); BILIRUBIN INDIRECT 0.4; BILIRUBIN TOTAL 0.6 mg/dL (0.2-1.0); CREATININE 0.71 mg/dL (0.55-1.02); EST CRCL DRUG DOSING (CG) 48.89 mL/min; POTASSIUM,K 3.9 mmol/L (3.5-5.1); PROTEIN TOTAL,TP 6.5 g/dL (6.4-8.2)
[2024-11-23 06:29] LABS: A/G RATIO 0.91
[2024-11-23 10:37] LABS: APPEARANCE,URINE CLEAR (CLEAR); BILIRUBIN,URINE NEGATIVE (NEGATIVE); COLOR,URINE LIGHT YELLOW (YELLOW); GLUCOSE,URINE NEGATIVE (NEGATIVE); KETONES,URINE NEGATIVE (NEGATIVE); LEUKOCYTE ESTERASE,URINE NEGATIVE (NEGATIVE); NITRITE,URINE NEGATIVE (NEGATIVE); OCCULT BLOOD,URINE TRACE-INTACT (NEGATIVE); PROTEIN,URINE NEGATIVE (NEGATIVE); UROBILINOGEN,URINE 0.2 mg/dL (0.2-1.0)
[2024-11-23 10:45] LABS: AMORPHOUS SEDIMENT,URINE RARE /HPF (NOT SEEN); BACTERIA,URINE RARE /HPF (0-FEW/HPF); EPITHELIAL CELLS,URINE RARE /HPF (NOT SEEN); MUCUS,URINE RARE /LPF (NOT SEEN); RBC,URINE 0-5 /HPF (0-5); WBC,URINE 0-5 /HPF (0-5/HPF)
[2024-11-23] MEDS: Dextrose 5% in Water 1,000 ML IV SCH (11:14)
[2024-11-23 13:29] LABS: ANION GAP 17.9 mEq/L (7-13); CALCIUM 9.5 mg/dL (8.5-10.1); CREATININE 0.81 mg/dL (0.55-1.02); EST CRCL DRUG DOSING (CG) 42.85 mL/min; POTASSIUM,K 3.9 mmol/L (3.5-5.1)
[2024-11-23 13:46] LABS: HAV AB IGM Negative (Negative); HBC IGM Negative (Negative); HEP B SURG AG Negative (Negative); HEP C AB BY CIA Negative (Negative); HEP C AB BY CIA INDEX 0.05 IV
[2024-11-23 22:43] LABS: ANA BY ELISA, IGG W/RFLX IFA None Detected (None Detected)
[2024-11-23 23:42] LABS: MITOCHONDRIAL AB 1.6 Units (0.0-24.9)
[2024-11-24 05:43] LABS: LIV,KID MIC1AB,IGG 1.1 U (0.0-24.9)
[2024-11-24 06:24] LABS: BASOPHILS PERCENT AUTO 0.2 % (0.0-1.0); EOSINOPHILS PERCENT AUTO 0.8 % (1.0-3.0); HEMATOCRIT 39.2 % (37.0-47.0); LYMPHOCYTES PERCENT AUTO 22.6 % (20.5-50.1); MEAN CORPUSCULAR HEMOGLOBIN 30.3 pg (27.0-34.0); MEAN CORPUSCULAR HGB CONC 33.2 g/dL (33.0-35.0); MEAN CORPUSCULAR VOLUME 91.4 fL (80-100); MONOCYTES PERCENT AUTO 9.2 % (2-8); NEUTROPHILS PERCENT AUTO 67.2 % (42.2-75.2); PLATELET COUNT,PLT 345 10^3/uL (150-450); RED BLOOD CELL COUNT 4.29 10^6/uL (4.2-5.4); WHITE BLOOD CELL COUNT,WBC 11.2 10^3/uL (5.0-10.0)
[2024-11-24 06:45] LABS: ALBUMIN 3.1 g/dL (3.4-5.0); ANION GAP 15.1 mEq/L (7-13); BILIRUBIN DIRECT 0.3 mg/dL (0.0-0.2); BILIRUBIN INDIRECT 0.6; BILIRUBIN TOTAL 0.9 mg/dL (0.2-1.0); CALCIUM 9.2 mg/dL (8.5-10.1); CREATININE 0.83 mg/dL (0.55-1.02); EST CRCL DRUG DOSING (CG) 41.82 mL/min; POTASSIUM,K 4.1 mmol/L (3.5-5.1); PROTEIN TOTAL,TP 6.7 g/dL (6.4-8.2)
[2024-11-24 06:52] LABS: A/G RATIO 0.86
[2024-11-24] MEDS ORDERED: D5 1/2 NS w/ 10 mEq/L KCl 1,000 ML IV SCH (09:30)
[2024-11-24 09:42] LABS: SM MUSC IGG TITER NOT DONE; SMOOTH MUSC AB, IGG 9 Units (0-19)
[2024-11-24] MEDS: predniSONE 20 MG Tab PO ONE (11:23)
[2024-11-24] MEDS: Sodium Chloride 0.9% 10 ML Syringe FLUSH PRN (21:02)
[2024-11-25 05:47] LABS: SOLUBLE LIVER AG AB, IGG 1.7 U (0.0-24.9)
[2024-11-25 06:39] LABS: BASOPHILS PERCENT AUTO 0.3 % (0.0-1.0); HEMOGLOBIN 12.4 g/dL (12.0-16.0); LYMPHOCYTES PERCENT AUTO 33.4 % (20.5-50.1); MEAN CORPUSCULAR HEMOGLOBIN 30.5 pg (27.0-34.0); MEAN CORPUSCULAR HGB CONC 33.5 g/dL (33.0-35.0); MEAN CORPUSCULAR VOLUME 90.9 fL (80-100); MONOCYTES PERCENT AUTO 8.9 % (2-8); NEUTROPHILS PERCENT AUTO 56.4 % (42.2-75.2); PLATELET COUNT,PLT 359 10^3/uL (150-450); RED BLOOD CELL COUNT 4.07 10^6/uL (4.2-5.4); WHITE BLOOD CELL COUNT,WBC 10.2 10^3/uL (5.0-10.0)
[2024-11-25 06:58] LABS: ALBUMIN 3.1 g/dL (3.4-5.0); ANION GAP 14.3 mEq/L (7-13); BILIRUBIN DIRECT 0.2 mg/dL (0.0-0.2); BILIRUBIN INDIRECT 0.4; BILIRUBIN TOTAL 0.6 mg/dL (0.2-1.0); CALCIUM 9.3 mg/dL (8.5-10.1); CREATININE 0.76 mg/dL (0.55-1.02); EST CRCL DRUG DOSING (CG) 45.67 mL/min; POTASSIUM,K 4.3 mmol/L (3.5-5.1); PROTEIN TOTAL,TP 6.7 g/dL (6.4-8.2)
[2024-11-25 07:04] LABS: A/G RATIO 0.86
[2024-11-25] MEDS ORDERED: Glucagon,Human Recombinant 1 MG Vial IM PRN (11:40)
[2024-11-25] MEDS ORDERED: 50% Dextrose in Water 50 ML Syringe IVPUSH PRN (11:40)
[2024-11-25] MEDS: Insulin Lispro 100 Units/ML 3 ML Vial SUBCUT SCH (11:54)
[2024-11-25] MEDS: Tamsulosin 0.4 MG Cap.ER PO ONE (12:11)
[2024-11-25 13:56] LABS: APPEARANCE,URINE SLIGHTLY CLOUDY (CLEAR); COLOR,URINE YELLOW (YELLOW)
[2024-11-25 13:57] LABS: BILIRUBIN,URINE NEGATIVE (NEGATIVE); GLUCOSE,URINE NEGATIVE (NEGATIVE); KETONES,URINE TRACE (NEGATIVE); LEUKOCYTE ESTERASE,URINE SMALL (NEGATIVE); NITRITE,URINE NEGATIVE (NEGATIVE); OCCULT BLOOD,URINE LARGE (NEGATIVE); PROTEIN,URINE 30 (NEGATIVE)
[2024-11-25 14:08] LABS: AMORPHOUS SEDIMENT,URINE FEW /HPF (NOT SEEN); BACTERIA,URINE MODERATE /HPF (0-FEW/HPF); EPITHELIAL CELLS,URINE RARE /HPF (NOT SEEN); GRANULAR CASTS,URINE RARE; HYALINE CASTS,URINE RARE; MUCUS,URINE FEW /LPF (NOT SEEN); RBC,URINE >100 /HPF (0-5)
[2024-11-26 06:36] LABS: BASOPHILS PERCENT AUTO 0.4 % (0.0-1.0); EOSINOPHILS PERCENT AUTO 1.2 % (1.0-3.0); HEMATOCRIT 36.7 % (37.0-47.0); HEMOGLOBIN 12.4 g/dL (12.0-16.0); LYMPHOCYTES PERCENT AUTO 32.7 % (20.5-50.1); MEAN CORPUSCULAR HEMOGLOBIN 30.7 pg (27.0-34.0); MEAN CORPUSCULAR HGB CONC 33.8 g/dL (33.0-35.0); MEAN CORPUSCULAR VOLUME 90.8 fL (80-100); MONOCYTES PERCENT AUTO 9.9 % (2-8); NEUTROPHILS PERCENT AUTO 55.8 % (42.2-75.2); PLATELET COUNT,PLT 356 10^3/uL (150-450); RED BLOOD CELL COUNT 4.04 10^6/uL (4.2-5.4); WHITE BLOOD CELL COUNT,WBC 8.2 10^3/uL (5.0-10.0)
[2024-11-26 07:02] LABS: A/G RATIO 0.88; ANION GAP 13.3 mEq/L (7-13); BILIRUBIN DIRECT 0.2 mg/dL (0.0-0.2); BILIRUBIN INDIRECT 0.4; BILIRUBIN TOTAL 0.6 mg/dL (0.2-1.0); CALCIUM 9.1 mg/dL (8.5-10.1); CREATININE 0.77 mg/dL (0.55-1.02); EST CRCL DRUG DOSING (CG) 45.08 mL/min; POTASSIUM,K 4.3 mmol/L (3.5-5.1); PROTEIN TOTAL,TP 6.4 g/dL (6.4-8.2)
[2024-11-26] MEDS: Cefdinir 300 MG Cap PO SCH (08:35)
[2024-11-26 15:11] VITALS: BP 112/62; PULSE 80
== END 2024-11-26 15:10 | disposition home or self-care (01) | DRG 439 ==
LOC: DL.ED 08:57 → DL.MS 11:05
PROVIDERS: ADMIT Internal Medicine; ATTEND Internal Medicine
PROC: 0T9B70Z Drainage of Bladder with Drainage Device, Via Natural or Artificial Opening (ICD-10-PCS; principal; 2024-11-20)
DX: K85.90 Acute pancreatitis without necrosis or infection, unspecified (principal); E87.0 Hyperosmolality and hypernatremia; E87.20 Acidosis, unspecified; N39.0 Urinary tract infection, site not specified; Z66 Do not resuscitate; H54.7 Unspecified visual loss; I10 Essential (primary) hypertension; K72.90 Hepatic failure, unspecified without coma; T38.3X5A Adverse effect of insulin and oral hypoglycemic [antidiabetic] drugs, initial encounter; E86.0 Dehydration; E78.00 Pure hypercholesterolemia, unspecified; M19.90 Unspecified osteoarthritis, unspecified site; R33.9 Retention of urine, unspecified; M81.0 Age-related osteoporosis without current pathological fracture; R51.9 Headache, unspecified; E11.9 Type 2 diabetes mellitus without complications; Z86.16 Personal history of COVID-19; Z90.49 Acquired absence of other specified parts of digestive tract; Z98.49 Cataract extraction status, unspecified eye; Z79.84 Long term (current) use of oral hypoglycemic drugs; Z98.890 Other specified postprocedural states; Z79.899 Other long term (current) drug therapy
CPT/HCPCS: 36415; 51702; 71045; 74177; 80048; 80053; 80061; 80074; 80076; 80143; 81001; 81003; 82784; 82947; 82977; 83036; 83516; 83540; 83550; 83605; 83690; 83735; 84484; 85025; 85610; 85730; 86015; 86038; 86140; 86256; 86376; 86381; 87086; 87088; 87186; 93005; 93010; 96360; 99223; 99232; 99239; 99284; 99285-25; A9270-GY; J1644; J1815-GY; J2270; J2405; J3010; J3475; J3480; J7030; J7070; J7512